=== PATIENT | female | born 1945 | race Caucasian/White ===

== ENCOUNTER 2016-10-25 15:01 | Observation (INO) | payer MEDICARE, OTHER ==
[~2016-10-25] VITALS: Ht 165.1 cm; Wt 66.8 kg
--- NOTE | ~2016-10-25 | CR72 ---
[facility] A Service of [facility] & [facility] RADIOLOGY TEXT RESULTS PATIENT: ELE FIERRO LOCATION: [facility] 579- : 45 UNIT #: [id number] AGE: [address]: Alexa Mckeon MD SEX: F ORDER DR: [id number] [facility] [address] [facility]. [place], [place] [address] [id number] I MR#: [id number] #: [id number] NAME: ELE FIERRO : 1945 SEX: F STUDY DATE/TIME: 10/25/2016 16:15 UNIT: CEDOF ROOM: 78231 STUDY DESCRIPTION: CR Chest Single View Portable Attending Physician: Alexa Mckeon M.D. Referring Physician: Fior Buenrostro M.D. Ordering Physician: Ed Addison Truong M.D. Primary Care Physician: Fior Buenrostro M.D. MEDICAL IMAGING REPORT This report is preliminary unless electronic signature is present EXAM Portable chest, 10/25 INDICATIONS Chest pain today. History of breast cancer and COPD. FINDINGS AP portable chest was obtained. No comparison. The lungs are emphysematous but clear. Cardiac and mediastinal contours are normal. There is no pneumothorax. Surgical clips noted in the right axilla. There are multiple old left rib fractures. IMPRESSION No active disease. Dictated by... Fortunato Lester Jr., M.D. THIS IS AN ELECTRONICALLY VERIFIED REPORT Fortunato Lester Jr., M.D. at 10/26/2016 4:33 PM CASTRO/mike TD: 10/25/2016 20:16 JOB #: [id number] MEDICAL IMAGING REPORT Page 1 of 1 COPY
--- NOTE | ~2016-10-25 | EKG ---
PATIENT: ELE FIERRO UNIT #: [id number] Ventricular Rate: 88 BPM Atrial Rate: 88 BPM P-R Interval: 150 ms QRS Duration: 82 ms Q-T Interval: 372 ms QTC Calculation(Bezet): 450 ms P [place]: 48 degrees Calculated R [place]: 23 degrees Calculated T [place]: 42 degrees Diagnosis Line: Normal sinus rhythm Diagnosis Line: Normal ECG Diagnosis Line: When compared with ECG of 26-OCT-2016 17:27, Diagnosis Line: (unconfirmed) Diagnosis Line: No significant change was found Diagnosis Line: Confirmed by LYLY PERSAUD MD ([id number]) on 10/27/2016 Diagnosis Line: 5:16:59 PM INTERPRETING MD: CORI BLAS
--- NOTE | ~2016-10-25 | EKG ---
PATIENT: ELE FIERRO UNIT #: [id number] Ventricular Rate: 78 BPM Atrial Rate: 78 BPM P-R Interval: 156 ms QRS Duration: 74 ms Q-T Interval: 388 ms QTC Calculation(Bezet): 442 ms P [place]: 50 degrees Calculated R [place]: 21 degrees Calculated T [place]: 38 degrees Diagnosis Line: Normal sinus rhythm Diagnosis Line: Normal ECG Diagnosis Line: When compared with ECG of 25-OCT-2016 15:16, Diagnosis Line: (unconfirmed) Diagnosis Line: No significant change was found Diagnosis Line: Confirmed by LYLY PERSAUD MD ([id number]) on 10/27/2016 Diagnosis Line: 4:56:44 PM INTERPRETING MD: CORI BLAS
--- NOTE | ~2016-10-25 | EKG ---
PATIENT: ELE FIERRO UNIT #: [id number] Ventricular Rate: 78 BPM Atrial Rate: 78 BPM P-R Interval: 160 ms QRS Duration: 80 ms Q-T Interval: 400 ms QTC Calculation(Bezet): 456 ms P [place]: 58 degrees Calculated R [place]: 39 degrees Calculated T [place]: 42 degrees Diagnosis Line: Normal sinus rhythm Diagnosis Line: Nonspecific ST abnormality Diagnosis Line: Abnormal ECG Diagnosis Line: Diagnosis Line: Confirmed by LYLY PERSAUD MD ([id number]) on 10/27/2016 Diagnosis Line: 5:07:33 PM INTERPRETING MD: CORI BLAS
--- NOTE | ~2016-10-25 | US67 ---
[facility] A Service of [facility] & [facility] RADIOLOGY TEXT RESULTS PATIENT: ELE FIERRO LOCATION: [facility] 579-01 : 45 UNIT #: [id number] AGE: [address]: Alexa Mckeon MD SEX: F ORDER DR: [id number] [facility] [address] [facility]. [place], [place] [address] [id number] I MR#: [id number] #: [id number] NAME: ELE FIERRO : 1945 SEX: F STUDY DATE/TIME: 10/27/2016 8:06 UNIT: [facility] ROOM: [facility] STUDY DESCRIPTION: US Gallbladder Attending Physician: Alexa Mckeon M.D. Referring Physician: Fior Buenrostro M.D. Ordering Physician: Rishi Hartley M.D. Primary Care Physician: Fior Buenrostro M.D. MEDICAL IMAGING REPORT This report is preliminary unless electronic signature is present EXAM Gallbladder ultrasound COMPARISON CT abdomen and pelvis performed yesterday, 10/26/2016. INDICATION 71-year-old female with generalized epigastric pain for 3 days. Prior cholecystectomy approximately 10-15 years ago. FINDINGS Pancreas is not well seen perhaps due to shadowing from bowel gas. Hepatic contour appears smooth. Overall, there is poor penetration of the abdomen on this exam limiting detailed evaluation of the liver. There is expected color flow and waveform within the main portal vein. The liver is mildly enlarged measuring up to 16 cm in length. No evidence of steatosis or cirrhosis. There is normal renal cortical thickness on the right. No right hydronephrosis. Right renal length is 9.1 cm. No focal right renal lesions are seen. There has been prior cholecystectomy. Common bile duct caliber is normal for patient age and prior cholecystectomy at 5 mm. IMPRESSION 1. Prior cholecystectomy. Please note that although the common bile duct appears normal caliber on this study, on comparison CT of yesterday it measured up to 17 mm. No evidence of obstructing lesion is seen on CT of yesterday. Correlation with serum laboratory values are recommended to exclude signs of biliary obstruction. 2. Detailed evaluation of the liver is limited on this exam due to poor penetration. There is mild hepatomegaly without evidence of cirrhosis or steatosis. 3. Pancreas is not well seen due to shadowing from bowel gas. [facility] A Service of [facility] RADIOLOGY TEXT RESULTS PATIENT: ELE FIERRO LOCATION: [place] [address] : [birth year] UNIT #: [id number] AGE: [address]: Alexa Mckeon MD SEX: F ORDER DR: Dictated by.. . Kai Barajas M.D. THIS IS AN ELECTRONICALLY VERIFIED REPORT Kai Barajas M.D. at 10/27/2016 4:59 PM PEPE/sina TD: 10/27/2016 16:03 JOB #: [id number] MEDICAL IMAGING REPORT Page 1 of 1 COPY
--- NOTE | ~2016-10-25 | EKG ---
PATIENT: ELE FIERRO UNIT #: [id number] Ventricular Rate: 92 BPM Atrial Rate: 92 BPM P-R Interval: 148 ms QRS Duration: 76 ms Q-T Interval: 374 ms QTC Calculation(Bezet): 462 ms P [place]: 68 degrees Calculated R [place]: 43 degrees Calculated T [place]: 49 degrees Diagnosis Line: Normal sinus rhythm Diagnosis Line: Normal ECG Diagnosis Line: No previous ECGs available Diagnosis Line: Confirmed by LYLY PERSAUD MD ([id number]) on 10/26/2016 Diagnosis Line: 10:23:26 PM INTERPRETING MD: CORI BLAS
--- NOTE | ~2016-10-25 | OR ---
Unit #: [id number] #: [id number] Patient: ELE FIERRO [id number] [address] [place], [place] [address] [id number] I MR#: [id number] NAME: ELE FIERRO ROOM: 579 Date of Procedure: 10/28/2016 Admission Date: 10/25/2016 Surgeon: Vega Rollins M.D. : 1945 Attending Physician: Alexa Mckeon M.D. Referring Physician: Fior Buenrostro M.D. Primary Care Physician: Fior Buenrostro M.D. OPERATIVE REPORT PRIMARY CARE PHYSICIAN Fior Buenrostro M.D. PREOPERATIVE DIAGNOSES The patient has presented with lower sternal chest pain, had a normal heart catheterization and subsequently found to have elevated LFTs including bilirubin and transaminases. Her imaging studies confirmed markedly dilated common bile duct. PROCEDURES PERFORMED 1. Endoscopic retrograde cholangiopancreatography and sphincterotomy. 2. Endoscopic retrograde cholangiopancreatography and brushings. 3. Endoscopic retrograde cholangiopancreatography and biliary and pancreatic stent placements. POSTOPERATIVE DIAGNOSES 1. The patient had a periampullary diverticulum. 2. The common bile duct was markedly dilated about 20 mm and was short and stumpy, distally tapered to a smooth narrow tapering. After sphincterotomy, brushings were obtained and both the pancreatic and biliary stents were placed. Initial access to common bile duct was obtained through a needle knife sphincterotomy. RECOMMENDATIONS The patient will have a repeat CBC, CMP, amylase, and lipase in the morning and if these showed a declining trend, she should be able to go home tomorrow. She will require a followup ERCP for biliary stent exchange and removal in 6 to 8 weeks' time. SEDATION USED MAC. DESCRIPTION OF PROCEDURE Following detailed explanation of the potential risks and complications of an ERCP, namely perforation, bleeding, and complication related to sedation and pancreatitis, the patient was brought to GI lab and laid in the left semiprone position. Sedation using MAC was given. Lateral-viewing duodenoscope was advanced through the oral cavity into the esophagus and advanced into the stomach. Pylorus was intubated in the usual fashion. The scope was advanced in deep descending duodenum. Upon shortening the scope, major papilla and ampullary area was visualized, but it was in a very difficult lie, therefore a long position was used to get Unit #: [id number] #: [id number] Patient: ELE FIERRO close to the ampullary area. Once the ampulla was in good location, attempt was made to cannulate the bile duct using guidewire based technique. Initially, pancreatic duct was cannulated after couple of attempts and the guidewire was anchored so as to obtain a stable position. The guidewire was anchored in the pancreas. Multiple attempts to get cannulate the common bile duct were unsuccessful. Therefore, a needle knife sphincterotomy was done and then the common bile duct was cannulated easily. The contrast cholangiogram showed markedly dilated common bile duct about 20 mm and short and stumpy duct about a 7 cm in total length. Intrahepatic biliary tree appeared normal. We then proceeded with biliary sphincterotomy and brushings of the distal duct near the ampullary area were obtained. The duct was swept with a 12 to 15 mm balloon at 12 mm pressures and no debris or stones were delivered, but copious amounts of bile were delivered into the duodenum. A 10-[place], 5-cm biliary stent was then deployed as well as 5-[place]atem[place], 5-cm pancreatic stent was deployed as well. The patient tolerated the procedure without any postprocedure complications. Dictated by... Carlota Frost/nicol TD: 10/28/2016 11:07 JOB #: [id number] OPERATIVE REPORT Page 1 of 1 X Vega Rollins MD X PROCEDURE OPERATIVE NOTE
--- NOTE | ~2016-10-25 | CO ---
Unit #: [id number] #: [id number] Patient: ELE CABALLERO [id number] [address] [address] [id number] I MR#: [id number] NAME: ELE CABALLERO ROOM: 579 Age: 71 Sex: F Admission Date: 10/25/2016 : 1945 Attending Physician: Alexa Mckeon M.D. Primary Care Physician: Fior Buenrostro M.D. Consultation Date: 10/27/2016 CONSULTATION REPORT REASON FOR CONSULTATION Abnormal LFTs. CT scan. HISTORY OF PRESENT ILLNESS Ms. Caballero is a very pleasant 71-year-old white female. The patient is admitted with a history of lower sternal severe chest pressure and pain along with nausea and vomiting. This happened for the first time today. The patient had a normal heart catheterization later today. Her pain has since resolved, but now she has elevated bilirubin and LFTs and a CAT consistent with distal common bile duct obstruction. PAST MEDICAL HISTORY 1. Chronic obstructive pulmonary disease. 2. Hypertension. 3. Hyperlipidemia. 4. Breast cancer. PAST SURGICAL HISTORY Mastectomy for breast cancer. SOCIAL HISTORY The patient lives at home alone. She does not drink alcohol had smoked a pack of cigarettes a day for more than 40 years. FAMILY HISTORY Coronary artery disease, myocardial infarction in sister at age 70, also history of stroke. ALLERGIES Codeine. CURRENT MEDICATIONS 1. Wellbutrin. 2. Chlorthalidone. 3. Celexa. 4. Advair Diskus. 5. Albuterol. 6. Mobic. 7. Lipitor. 8. Tizanidine. 9. Aspirin. 10. Omeprazole. 11. Fosamax. 12. Vitamin B12. Unit #: [id number] #: [id number] Patient: ELE CABALLERO 13. Vitamin D2. REVIEW OF SYSTEMS Detailed review of organ systems shows no recent weight loss. No history of fever, chills or rigors, headache, seizure or syncope. No history of cough, expectoration, hemoptysis. No history of dysuria, hematuria or pyuria. No history of focal seizures or extremity weakness. the rest of the review or organ systems is unremarkable. PHYSICAL EXAMINATION GENERAL: She is alert, oriented and comfortable. VITALS: Afebrile. Temperature 98.4, pulse 80 per minute, respiratory rate 18, blood pressure 110/50. HEENT: She has mild pallor. (1) icterus. There is no lymphadenopathy or peripheral edema. LUNGS: Normal breath sounds and air entry. HEART: Normal heart sounds. No murmurs to auscultation. ABDOMEN: Soft and nontender. Liver and spleen are not palpable. Bowel sounds present. DIAGNOSTIC STUDIES IMAGING: In addition, the patient had a CT scan of the abdomen and pelvis that showed dilated intra and extrahepatic biliary ductal dilation and evidence of previous cholecystectomy. LABORATORY: Bilirubin 6.2 today. It was 1.0 yesterday. AST, ALT and alkaline phosphatase today are 427, 517 and 331 respectively. ASSESSMENT The patient most likely has distal common bile duct stone, status post remote cholecystectomy and ERCP and sphincterotomy and removal of the ductal stone as indicated will be done tomorrow. The pros and cons of the procedure and potential risks and complications including the possibility of perforation, bleeding and pancreatitis were discussed with the patient and she was reassured. Thank you for asking me to see this pleasant patient in GI consult. Dictated by... Carlota Frost/kassandra TD: 10/29/2016 10:40 JOB #: [id number] CC: Carlota Vicente M.D. Unit #: [id number] #: [id number] Patient: ELE CABALLERO CONSULTATION REPORT Page 1 of 1 X Vega Rollins MD CONSULTATION REPORT
--- NOTE | ~2016-10-25 | OR ---
Unit #: [id number] #: [id number] Patient: ELE FIERRO [id number] [address] [address] [id number] I MR#: [id number] NAME: ELE FIERRO ROOM: 579 Date of Procedure: 10/28/2016 Admission Date: 10/25/2016 Surgeon: Vega Rollins M.D. : 1945 Attending Physician: Alexa Mckeon M.D. Referring Physician: Fior Buenrostro M.D. Primary Care Physician: Fior Buenrostro M.D. OPERATIVE REPORT PRIMARY CARE PHYSICIAN Fior Buenrostro M.D. PREOPERATIVE DIAGNOSES Epigastric and upper abdominal pain and jaundice. The patient had normal heart catheterization earlier today. PROCEDURES PERFORMED 1. Esophagogastroduodenoscopy and biopsy. 2. Esophagogastroduodenoscopy and dilation with a TTS balloon. POSTOPERATIVE DIAGNOSES 1. The patient had grade 1 distal erosive esophagitis. 2. There was distal esophageal benign stricture. The latter was dilated using an 18 to 20 mm TTS balloon. 3. Large hiatus hernia. 4. Mild prepyloric antral erosive gastritis. 5. Rest of the examination up to third part of duodenum was normal. A biopsy was obtained from the antrum for CLOtest. In addition, distal esophageal stricture was dilated using an 18 to 20 mm TTS balloon. RECOMMENDATIONS 1. Pantoprazole 40 mg p.o. daily. 2. The patient will require follow up in the office in 2 to 3 months' time. SEDATION USED MAC. DESCRIPTION OF PROCEDURE Following detailed explanation of the potential risks and complications of an upper endoscopy, namely perforation, bleeding, and complication related to sedation, the patient was brought to GI lab and laid in the left semiprone position. Sedation using MAC was given. Lubricated tip of the Olympus video upper endoscope was passed through the bite block into the proximal esophagus under direct vision. The entire esophageal mucosa was examined, the patient was noted to have grade 1 distal erosive esophagitis. The scope was then advanced into the gastric cavity and the latter was insufflated. Mucosa of the fundus, body, and antrum was examined. A large hiatus hernia was noted. In addition, mild prepyloric antral erosive gastritis was noted. Pylorus was intubated with visualization of the normal duodenal bulb and second and third part of the Unit #: [id number] #: [id number] Patient: ELE FIERRO duodenum. Upon withdrawal and retroflexion; incisura, cardia, and greater curve was examined and biopsy was obtained from the antrum for CLOtest. In the retroflexed position, the esophageal stricture was again visualized. The scope was withdrawn in the distal esophagus. An 18 to 20 mm TTS balloon was passed through the accessory channel of the scope and step-up dilation of the distal esophageal stricture was done. Minimal bleeding was noted. The area was thoroughly washed with water and good hemostasis was achieved. Excellent dilation was achieved. Photodocumentation was obtained. The scope was then withdrawn all the way up to pharynx. No additional findings were noted. The patient tolerated the procedure without any postprocedure complications. Dictated by... Carlota Frost/nicol TD: 10/28/2016 11:13 JOB #: [id number] CC: . OPERATIVE REPORT Page 1 of 1 X Vega Rollins MD X PROCEDURE OPERATIVE NOTE
--- NOTE | ~2016-10-25 | CT4 ---
[facility] A Service of [facility] & [facility] RADIOLOGY TEXT RESULTS PATIENT: ELE FIERRO LOCATION: [facility] 579-01 : 45 UNIT #: [id number] AGE: [address]: Alexa Mckeon MD SEX: F ORDER DR: [id number] [facility] [address] [facility] [place], [place] [address] [id number] I MR#: [id number] #: [id number] NAME: ELE FIERRO : 1945 SEX: F STUDY DATE/TIME: 10/26/2016 19:58 UNIT: [facility] ROOM: [facility] STUDY DESCRIPTION: CT Abd and Pelv Wo Cont Attending Physician: Alexa Mckeon M.D. Referring Physician: Fior Buenrostro M.D. Ordering Physician: Physician Non-Staff Primary Care Physician: Fior Buenrostro M.D. MEDICAL IMAGING REPORT This report is preliminary unless electronic signature is present EXAM CT scan of the abdomen and pelvis without contrast, 10/26/2016. HISTORY Mid abdominal pain, chest pain and nausea and vomiting beginning today. TECHNIQUE Spiral CT was performed through the abdomen and pelvis without oral or intravenous contrast administration as per clinician request. This CT exam was performed with one or more of the following radiation dose reduction techniques: automatic exposure control, adjustment of mA and/or kV according to patient size, and iterative reconstruction. FINDINGS ABDOMEN: The exam is limited by the lack of oral and intravenous contrast. The gallbladder is surgically absent. There is intra and extrahepatic biliary ductal dilatation with the common duct reaching a maximum diameter of 2.2 cm. No obstructing mass or calculus is seen, but the exam is severely limited by the lack of contrast as noted above. Clinical correlation is recommended. The liver, spleen, pancreas, adrenal glands and kidneys are normal. PELVIS FINDINGS: There is colonic diverticulosis without evidence of diverticulitis. Gut is otherwise unremarkable. No adenopathy is seen and there is no free fluid in the abdomen or pelvis. Images of the lung bases demonstrate moderate-sized hiatal hernia. IMPRESSION 1. The exam is limited by the lack of oral and intravenous contrast. There is no prior exam for comparison. 2. The gallbladder is surgically absent. There is dilatation of the intra and extrahepatic bile ducts with the common duct reaching a maximum diameter of approximately 2.2 cm. No definite obstructing STS. [facility] A Service of [facility] & [facility] RADIOLOGY TEXT RESULTS PATIENT: ELE FIERRO LOCATION: [facility] 579-01 : 45 UNIT #: [id number] AGE: [address]: Alexa Mckeon MD SEX: F ORDER DR: mass or calculus is seen; but, again, exam is severely limited by the lack of contrast. Clinical correlation is strongly recommended. 3. Diverticulosis. No evidence of diverticulitis. 4. Moderate-sized hiatal hernia. Dictated by... Estrada Lyn M.D. THIS IS AN ELECTRONICALLY VERIFIED REPORT Estrada Lyn M.D. at 10/27/2016 4:03 PM URBAN/delmis TD: 10/27/2016 12:13 JOB #: [id number] MEDICAL IMAGING REPORT Page 1 of 1 COPY
--- NOTE | ~2016-10-25 | CR84 ---
[facility] A Service of [facility] RADIOLOGY TEXT RESULTS PATIENT: ELE FIERRO LOCATION: [facility] [place] [facility] 579-01 : 45 UNIT #: [id number] AGE: [address]: Alexa Mckeon MD SEX: F ORDER DR: [id number] [place] [id number] [facility] [place], [place] [address] [id number] I MR#: [id number] Acc #: [id number] NAME: ELE FIERRO : 1945 SEX: F STUDY DATE/TIME: 10/28/2016 8:11 UNIT: [facility] [place] [facility] ROOM: [facility] STUDY DESCRIPTION: CR ERCP Biliary and Pancr SI Attending Physician: Alexa Mckeon M.D. Referring Physician: Fior Buenrostro M.D. Ordering Physician: Vega Rollins M.D. Primary Care Physician: Fior Buenrostro M.D. MEDICAL IMAGING REPORT This report is preliminary unless electronic signature is present EXAM ERCP (interpretation only) INDICATIONS Dilated common bile duct and common bile duct stones. FLUOROSCOPY The fluoroscopy time was 2.32 minutes. 5 images were submitted. FINDINGS Study shows a dilated common bile duct. A sphincterotomy was performed, and a stent was placed in the common bile duct. Please refer to ERCP report for complete details. Dictated by... Dominic Samuel M.D. THIS IS AN ELECTRONICALLY VERIFIED REPORT Dominic Samuel M.D. at 10/30/2016 7:36 AM RYANNE/herminio TD: 10/29/2016 11:43 JOB #: [id number] MEDICAL IMAGING REPORT Page 1 of 1 COPY
--- NOTE | ~2016-10-25 | HP ---
Unit #: [id number] #: [id number] Patient: ELE FIERRO [id number] [address] [place], [place] [address] [id number] MR#: [id number] NAME: ELE FIERRO ROOM: 579 Age: 71 Sex: F Admission Date: 10/25/2016 : 1945 Attending Physician: Alexa Mckeon M.D. Referring Physician: Fior Buenrostro M.D. Primary Care Physician: Fior Buenrostro M.D. HISTORY AND PHYSICAL HISTORY OF PRESENT ILLNESS This is a 71-year-old female with a prior history of hypertension, COPD, hyperlipidemia, GERD, ongoing tobacco abuse, and history of breast cancer, status post mastectomy. She presented to the ER with reports of midsternal chest pressure and tightness that began yesterday while she was sitting. The pressure was worse with deep breath and movement. She states the pressure is midsternal with some gas pains and some burping. She attempted to relieve it by taking baking soda, but there was no relief. She called EMS and was brought to the ER. The pain was alleviated in the ER after nitroglycerin was taken. This morning she woke up with some more pressure in the midsternal area, burping, nausea, and gas pain. She denies a prior cardiac history. She states she may have had a stress test done about 10 years, but she cannot remember the reason. The chest pressure yesterday was accompanied by diaphoresis, nausea, and lightheadedness. She denies palpitation or pain radiating in her jaw or neck. PAST MEDICAL HISTORY 1. Hypertension. 2. COPD. 3. Hyperlipidemia. 4. GERD. 5. Tobacco abuse. 6. Breast cancer, status post mastectomy. SOCIAL HISTORY Patient lives alone. She denies alcohol or illicit drug use. She has smoked one pack per day for the past 40 years. FAMILY HISTORY Her sister had an PR in her 70s and also has a history of CVA. ALLERGIES Codeine. HOME MEDICATIONS 1. Advair Diskus 250/50 at 1 inhalation twice daily. 2. Wellbutrin 150 mg p.o. twice daily. 3. Celexa 20 mg p.o. daily. 4. Chlorthalidone 25 mg p.o. daily. 5. Albuterol MDI 1 puff daily as needed for shortness of air. 6. Mobic 7.5 mg p.o. daily as needed for arthritis pain. 7. Lipitor 40 mg p.o. daily. Unit #: [id number] #: [id number] Patient: ELE FIERRO 8. Tizanidine 4 mg p.o. twice daily as needed for shoulder pain. 9. Aspirin 81 mg p.o. daily. 10. Omeprazole 20 mg p.o. daily. 11. Fosamax 70 mg p.o. on Mondays. 12. Vitamin B12 at 1000 mcg p.o. daily. 13. Vitamin D2 at 5000 units p.o. every Sunday. REVIEW OF SYSTEMS A 10-point review of systems was conducted and is otherwise negative except for what is stated in the HPI. PHYSICAL EXAMINATION VITAL SIGNS: Temperature 98, heart rate 95, respiratory rate 18, and blood pressure 107/57 to 84/52. GENERAL: This is a 71-year-old female sitting up in bed in no acute distress. HEENT: Head is atraumatic and normocephalic. Pupils are equal and reactive to light. Mucous membranes are moist and intact. NECK: Supple. Trachea is midline. No JVD. LUNGS: Clear and diminished in bases. Nonlabored respirations. CARDIOVASCULAR: S1 and S2, regular rate and rhythm. No significant murmurs, rubs, or gallops. ABDOMEN: Soft, nontender, and nondistended. Bowel sounds are active. EXTREMITIES: Pulses are palpable. No pedal edema. No cyanosis. NEUROLOGIC: Alert and oriented x3. Moves all extremities equally and follows commands without difficulty. DIAGNOSTIC STUDIES LABORATORY: Sodium 139, potassium 3.9, chloride 97, BUN 24, creatinine 1.2, and glucose 93. Hemoglobin 12.3, hematocrit 36, white blood cell count 9.2, and platelets 232,000. AST 140, ALT 61, and alkaline phosphatase 99. TSH 2.66. Point of care troponin less than 0.05 and repeat troponin less than 0.03. Lipid profile: Cholesterol 193, triglycerides 116, LDL 128, and HDL 42. IMAGING: Chest x-ray shows no acute disease. CARDIOLOGY: EKG shows sinus rhythm with a ventricular rate of 78 and nonspecific T wave abnormalities. ASSESSMENT 1. Chest pain, questionable unstable angina. 2. Hypertension. 3. Hyperlipidemia. 4. Chronic obstructive pulmonary disease. 5. Tobacco abuse. 6. Elevated liver function tests, questionable etiology. PLAN 1. Recommend cardiac cath. Plan for cath tomorrow. Risks and benefits discussed with the patient. 2. Check 2D echocardiogram. 3. CBC, BMP, and troponin in the morning. 4. EKG and LFTs in the a.m. 5. Her blood pressure is low. No beta jessica at this time. 6. Continue aspirin, statin, and Lovenox. 1. Unit #: [id number] #: [id number] Patient: ELE FIERRO Dictated by Amy Balderrama APRN for Carlota Vicente/shawnee TD: 10/26/2016 16:15 JOB #: [id number] HISTORY AND PHYSICAL Page 1 of 1 X X HISTORY AND PHYSICAL
[2016-10-25 16:14] LABS: BASOPHIL% 0.5 % (0-2.5); EOSINOPHIL% 0.4 % (0.0-7.0); HEMOGLOBIN 12.3 gm/dL (12.0-16.0); LYMPHOCYTE# 1.2 X10e3 (1.0-3.5); LYMPHOCYTE% 13.1 % (17.0-45.0); MEAN CELL VOLUME 96.9 FL (83-96); MEAN PLATELET VOLUME 7.2 FL (6.5-11.5); MONOCYTE# 0.5 X10e3 (0-1.0); MONOCYTE% 5.1 % (3.0-12.0); NEUTROPHIL# 7.4 X10e3 (1.5-7.1); NEUTROPHIL% 80.9 % (40-75); PLATELET COUNT 232 X10e3 (140-420); RED BLOOD COUNT 3.72 X10e (3.90-5.30); RED CELL DISTRIBUTION WIDTH 12.7 % (11.0-15.5); WHITE BLOOD COUNT 9.2 X10e3 (4.0-10.5)
[2016-10-25 16:18] LABS: DIFF IND NO
[2016-10-25 16:27] LABS: PARTIAL THROMBOPLASTIN TIME 23.9 SECONDS (23.5-31.3); PROTHROMBIN TIME (PATIENT) 10.5 SECONDS (10.0-11.7)
[2016-10-25 16:28] LABS: POC - CKMB 1.7 ng/mL (0.0-7.9); POC - TROPONIN <0.05 ng/mL (<=0.05)
[2016-10-25 16:46] LABS: ALBUMIN SERUM 3.6 g/dL (3.5-5.0); BILIRUBIN, DIRECT 0.5 mg/dL (0.0-0.2); BILIRUBIN,INDIRECT 0.5 mg/dL (0.0-0.9); CALCIUM SERUM 8.6 mg/dL (8.4-10.2); CREATININE SERUM 1.2 mg/dL (0.6-1.4); GLOM FILT RATE Estimated 45.4 mL/min (>60); POTASSIUM 3.9 mmol/L (3.5-5.1); PROTEIN TOTAL SERUM 6.6 g/dL (6.0-8.3)
[2016-10-25 18:08] LABS: POC - CKMB <1.0 ng/mL (0.0-7.9); POC - TROPONIN <0.05 ng/mL (<=0.05)
[2016-10-25] MEDS ORDERED: ADVAIR 250-501 EAC1 INH (22:00)
[2016-10-25] MEDS ORDERED: BUPROPION XL150 MG PO (22:01)
[2016-10-25] MEDS ORDERED: CELEXA20 MG PO (22:02)
[2016-10-25] MEDS ORDERED: ALBUTEROL17 GM INH (22:03)
[2016-10-25] MEDS ORDERED: CHLORTHALIDONE25 MG PO (22:03)
[2016-10-25] MEDS ORDERED: LIPITOR40 MG PO (22:04)
[2016-10-25] MEDS ORDERED: MOBIC PO (22:04)
[2016-10-25] MEDS ORDERED: ASPIRIN EC81 M1 PO (22:05)
[2016-10-25] MEDS ORDERED: TIZANIDINE HCL4 M1 PO (22:05)
[2016-10-25] MEDS ORDERED: OMEPRAZOLE20 M2 PO (22:06)
[2016-10-25] MEDS ORDERED: FOSAMAX70 MG PO (22:07)
[2016-10-25] MEDS ORDERED: B-121000 MC1 PO (22:08)
[2016-10-25] MEDS ORDERED: VITAMIN D250000 UNIT PO (22:09)
[2016-10-26 00:27] LABS: %MB 1.9 % (0.0-4.0); MB 1.4 ng/ml
[2016-10-26 07:05] LABS: %MB 2.4 % (0.0-4.0); MB 1.9 ng/ml
[2016-10-26 07:22] LABS: CHOLESTEROL 193 mg/dL (0-200); HDL CHOLESTEROL 42 mg/dL (35-95); LDL CHOLESTEROL 128 mg/dL ([, -130]); LDL/HDL RATIO 3 RATIO (0-4); TRIGLYCERIDES 116 mg/dL (10-160)
[2016-10-26 13:04] LABS: %MB 2.4 % (0.0-4.0); MB 1.8 ng/ml
[2016-10-26 21:06] LABS: AMYLASE 17 U/L (0-46); LIPASE 15 U/L (22-51)
[2016-10-27 07:34] LABS: HEMATOCRIT 34.9 % (35.0-45.0); HEMOGLOBIN 12.2 gm/dL (12.0-16.0); MEAN CELL VOLUME 95.9 FL (83-96); MEAN CORPUSCULAR HEMOGLOBIN 33.5 PG (28-34); MEAN CORPUSCULAR HGB CONC 34.9 g/dL (30-36); MEAN PLATELET VOLUME 7.7 FL (6.5-11.5); RED BLOOD COUNT 3.64 X10e (3.90-5.30); RED CELL DISTRIBUTION WIDTH 12.9 % (11.0-15.5)
[2016-10-27 07:43] LABS: INR 1.1; PROTHROMBIN TIME (PATIENT) 11.9 SECONDS (10.0-11.7)
[2016-10-27 08:08] LABS: ALBUMIN SERUM 3.5 g/dL (3.5-5.0); BILIRUBIN, DIRECT 3.9 mg/dL (0.0-0.2); BILIRUBIN,INDIRECT 2.3 mg/dL (0.0-0.9); BILIRUBIN,TOTAL 6.2 mg/dL (0.2-2.0); BUN/CREATININE RATIO 24.44; CALCIUM SERUM 8.9 mg/dL (8.4-10.2); CREATININE SERUM 0.9 mg/dL (0.6-1.4); GLOM FILT RATE Estimated 64.4 mL/min (>60); POTASSIUM 3.8 mmol/L (3.5-5.1); PROTEIN TOTAL SERUM 6.6 g/dL (6.0-8.3)
[2016-10-27 16:58] LABS: URINE APPEARANCE CLOUDY; URINE BLOOD TRACE (NEG); URINE COLOR DK YELLOW; URINE GLUCOSE NEG (NEG); URINE KETONE NEG (NEG); URINE LEUKOCYTE ESTERASE TRACE (NEG); URINE NITRATE POS (NEG); URINE PROTEIN TRACE (NEG); URINE SPECIFIC GRAVITY 1.046 (1.003-1.035)
[2016-10-27 17:01] LABS: URINE BACTERIA AUWI 4+ (NEGATIVE); URINE SQUAMOUS EPITHELIAL CELL OCC /[HPF]
[2016-10-27 17:02] LABS: URINE BILIRUBIN POS (NEG)
[2016-10-28 06:23] LABS: HEMATOCRIT 34.7 % (35.0-45.0); HEMOGLOBIN 11.9 gm/dL (12.0-16.0); MEAN CELL VOLUME 97.3 FL (83-96); MEAN CORPUSCULAR HEMOGLOBIN 33.4 PG (28-34); MEAN CORPUSCULAR HGB CONC 34.3 g/dL (30-36); MEAN PLATELET VOLUME 7.8 FL (6.5-11.5); RED BLOOD COUNT 3.56 X10e (3.90-5.30); RED CELL DISTRIBUTION WIDTH 13.3 % (11.0-15.5); WHITE BLOOD COUNT 5.6 X10e3 (4.0-10.5)
[2016-10-28 06:38] LABS: ALBUMIN SERUM 3.1 g/dL (3.5-5.0); CALCIUM SERUM 8.6 mg/dL (8.4-10.2); CREATININE SERUM 0.8 mg/dL (0.6-1.4); GLOM FILT RATE Estimated 74.2 mL/min (>60); POTASSIUM 3.6 mmol/L (3.5-5.1); PROTEIN TOTAL SERUM 6.8 g/dL (6.0-8.3)
[2016-10-28 06:39] LABS: BILIRUBIN,TOTAL 3.9 mg/dL (0.2-2.0)
[2016-10-29 05:47] LABS: HEMATOCRIT 34.6 % (35.0-45.0); MEAN CORPUSCULAR HEMOGLOBIN 33.3 PG (28-34); MEAN CORPUSCULAR HGB CONC 34.7 g/dL (30-36); MEAN PLATELET VOLUME 8.1 FL (6.5-11.5); RED BLOOD COUNT 3.61 X10e (3.90-5.30); RED CELL DISTRIBUTION WIDTH 12.6 % (11.0-15.5); WHITE BLOOD COUNT 5.9 X10e3 (4.0-10.5)
[2016-10-29 06:23] LABS: ALBUMIN SERUM 2.9 g/dL (3.5-5.0); BILIRUBIN,TOTAL 2.3 mg/dL (0.2-2.0); CALCIUM SERUM 8.8 mg/dL (8.4-10.2); GLOM FILT RATE Estimated 56.7 mL/min (>60)
== END 2016-10-29 18:51 | disposition home or self-care (01) ==
LOC: CED 15:01 → CEDOF 17:40 → C5C 17:40 → CED 18:12 → CEDOF 18:12 → C5C 23:02 → CEDOF 23:02 → C5C 10-29 18:51
PROVIDERS: Emergency Medicine; Internal Medicine Cardiovascular Disease; Internal Medicine Gastroenterology
DX: K29.00 Acute gastritis without bleeding (principal); K20.8 Other esophagitis; K22.2 Esophageal obstruction; K44.9 Diaphragmatic hernia without obstruction or gangrene; K83.8 Other specified diseases of biliary tract; I10 Essential (primary) hypertension; J44.9 Chronic obstructive pulmonary disease, unspecified; E78.5 Hyperlipidemia, unspecified; K21.9 Gastro-esophageal reflux disease without esophagitis; F17.210 Nicotine dependence, cigarettes, uncomplicated; Z85.3 Personal history of malignant neoplasm of breast; Z88.5 Allergy status to narcotic agent; Z79.1 Long term (current) use of non-steroidal anti-inflammatories (NSAID); Z79.82 Long term (current) use of aspirin; Z79.899 Other long term (current) drug therapy
CPT/HCPCS: 36415; 71010; 74176; 74330; 76705; 80048; 80053; 80061; 80076; 81003; 82150; 82550; 82553; 83690; 84443; 84484; 85025; 85027; 85610; 85730; 87077; 87086; 87088; 87186; 88104; 93005; 93306; 94640; 94664; 94760; 96372; 96374; 96375; 96376; 99152; 99285; C1769; C1887; C1894; C9113; G0378; J1610; J1644; J1650; J2250; J2270; J2405; J3010